=== PATIENT | male | born 1970 | race Caucasian/White ===

== ENCOUNTER 2016-10-25 07:20 | Emergency (ER) | payer OTHER ==
[~2016-10-25] VITALS: Ht 177.8 cm; Wt 122.2 kg
[~2016-10-25 07:20] MED LIST: ATOR80TA PO; INSU100V5 SQ-INSULIN; INSU100V8 SQ; LISI-170 PO; METF500T4 PO
[2016-10-25] MEDS ORDERED: OXYcodone/APAP 5/325MG TABLET PO ONE (08:00)
[2016-10-25] MEDS ORDERED: IBUPROFEN 200 MG TABLET PO ONE (08:00)
[2016-10-25] MEDS ORDERED: OXYcodone/APAP 5/325MG TABLET ONE (08:01)
[2016-10-25] MEDS ORDERED: IBUPROFEN 200 MG TABLET ONE (08:01)
[2016-10-25] MEDS ORDERED: INSULIN REGULAR 100 UNITS/ML, 3ML VIAL ONE (08:24)
[2016-10-25] MEDS ORDERED: SODIUM CHLORIDE FLUSH 10ML SYR IVF ONE (08:30)
[2016-10-25] MEDS ORDERED: INSULIN REGULAR 100 UNITS/ML, 3ML VIAL SQ-INSULIN ONE (08:30)
[2016-10-25] MEDS ORDERED: SODIUM CHLORIDE 0.9% 1,000ML IVBOLUS ONE ×2 (08:30→09:30)
[2016-10-25 08:43] LABS: BLOOD UREA NITROGEN 22 mg/dL (7-18)
[2016-10-25] MEDS ORDERED: LISINOPRIL 20 MG TABLET ONE (09:16)
[2016-10-25] MEDS ORDERED: LISINOPRIL 20 MG TABLET PO ONE (09:30)
[2016-10-25 10:05] VITALS: BP 169/105
== END 2016-10-25 10:16 | disposition home or self-care (01) ==
LOC: ED 08:01
DX: S20.211A Contusion of right front wall of thorax, initial encounter (principal); M54.9 Dorsalgia, unspecified; G89.29 Other chronic pain; E11.65 Type 2 diabetes mellitus with hyperglycemia; I10 Essential (primary) hypertension; Z90.49 Acquired absence of other specified parts of digestive tract; W19.XXXA Unspecified fall, initial encounter; Y93.89 Activity, other specified; Y99.8 Other external cause status; Y92.488 Other paved roadways as the place of occurrence of the external cause
CPT/HCPCS: 36415; 71020; 80048; 82010; 82040; 82800; 82962; 83735; 85025; 96361; 96374; 99285; J7030

== ENCOUNTER 2017-03-13 12:06 | Emergency (ER) | payer OTHER ==
[~2017-03-13] VITALS: Ht 175.3 cm; Wt 116.6 kg
[2017-03-13] MEDS ORDERED: ASPIRIN 81 MG TABLET CHEW ONE (13:00)
[2017-03-13] MEDS ORDERED: ASPIRIN 81 MG TABLET CHEW PO ONE (13:00)
[2017-03-13] MEDS ORDERED: SODIUM CHLORIDE 0.9% 1,000ML IVBOLUS ONE (13:00)
[2017-03-13] MEDS ORDERED: SODIUM CHLORIDE FLUSH 10ML SYR IVF ONE (13:00)
[2017-03-13] MEDS ORDERED: FAMOTIDINE 20 MG/2 ML ONE (13:04)
[2017-03-13] MEDS ORDERED: ONDANSETRON 2MG/ML, 2ML ONE (13:04)
[2017-03-13 13:14] LABS: HEMATOCRIT 48.1 % (39.2-51.8); HEMOGLOBIN 16.6 g/dL (13.7-18.0); WHITE BLOOD COUNT 11.6 x10^3/uL (3.4-10)
[2017-03-13] MEDS ORDERED: ONDANSETRON 2MG/ML, 2ML IVPush ONE (13:30)
[2017-03-13] MEDS ORDERED: FAMOTIDINE 20 MG/2 ML IVPush ONE (13:30)
[2017-03-13 13:32] LABS: ASPARTATE AMINO TRANSFERASE 18 U/L (15-37); BLOOD UREA NITROGEN 15 mg/dL (7-18)
[2017-03-13 14:14] LABS: IS PT STATUS REG ER OR PRE ER? YES
[2017-03-13] MEDS ORDERED: PROMETHAZINE 25 MG/ML, 1ML ONE (14:22)
[2017-03-13] MEDS ORDERED: MORPHINE SULFATE 4 MG/ML, 1ML ONE (14:22)
[2017-03-13] MEDS ORDERED: METOCLOPRAMIDE 5 MG/ML, 2ML IVPush ONE (15:00)
[2017-03-13] MEDS ORDERED: morphine SULFATE 10 MG/ML, 1ML IVPush ONE (15:00)
[2017-03-13] MEDS ORDERED: PROMETHAZINE 25 MG/ML, 1ML IM ONE (15:00)
[2017-03-13] MEDS ORDERED: METOCLOPRAMIDE 5 MG/ML, 2ML ONE (15:03)
[2017-03-13 15:07] LABS: RAPID INFLUENZA A Negative (Negative); RAPID INFLUENZA B Negative (Negative)
[2017-03-13 16:07] VITALS: BP 168/88
== END 2017-03-13 16:12 | disposition home or self-care (01) ==
LOC: ED 13:53
DX: E86.0 Dehydration (principal); R10.84 Generalized abdominal pain; I10 Essential (primary) hypertension; E11.65 Type 2 diabetes mellitus with hyperglycemia; G89.29 Other chronic pain; M54.9 Dorsalgia, unspecified
CPT/HCPCS: 36415; 71020; 80053; 83880; 84484; 85025; 87400; 93005; 96361; 96372; 96374; 96375; 99285; J2270; J2405; J2550; J2765; J7030; S0028

== ENCOUNTER 2018-06-21 16:52 | Inpatient (IN) | payer MEDICAID, OTHER ==
[~2018-06-21] VITALS: Ht 177.8 cm; Wt 116.6 kg
[~2018-06-21 16:52] MED LIST changes: +METF500T17 PO; -METF500T4 PO
[2018-06-21 17:18] LABS: BASOPHILS # (AUTO) 0.06 x10^3/uL (0-0.1); BASOPHILS % (AUTO) 0 % (0-1); EOSINOPHILS # (AUTO) 0.18 x10^3/uL (0-0.4); EOSINOPHILS % (AUTO) 1 % (1-7); LYMPHOCYTES # (AUTO) 3.06 x10^3/uL (1-3.4); LYMPHOCYTES % (AUTO) 23 % (22-44); MD NO; MEAN CORPUSCULAR HEMOGLOBIN 29.5 pg (27.5-34.5); MEAN CORPUSCULAR HGB CONC 34.4 g/dL (33.2-36.2); MEAN CORPUSCULAR VOLUME 85.7 fL (81-97); MONOCYTES # (AUTO) 0.61 x10^3/uL (0.2-0.8); MONOCYTES % (AUTO) 5 % (2-9); NEUTROPHILS # (AUTO) 9.44 x10^3/uL (1.8-6.8); NEUTROPHILS % (AUTO) 71 % (42-75); PLATELET COUNT 248 x10^3/uL (130-400); RED BLOOD COUNT 4.54 x10^6/uL (4.38-5.82); RED CELL DISTRIBUTION WIDTH 13.5 % (9.4-14.8)
[2018-06-21 17:29] LABS: ALBUMIN 3.2 g/dL (3.4-5.0); ANION GAP 10 mmol/L (5-15); CALCIUM 8.5 mg/dL (8.5-10.1); CHLORIDE 110 mmol/L (98-107); CREATININE 1.62 mg/dL (0.7-1.3)
[2018-06-21 17:33] LABS: TROPONIN I < 0.015 ng/mL (0.000-0.045)
--- NOTE | 2018-06-21 18:33 | NUR ---
Assumed care of patient. C/O SOB and increasing pedal edema despite increasing diuretics under the direction of his PCP. BLE 4+ pitting edema. Lungs diminished throughout. 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 Will continue to monitor.
[2018-06-21] MEDS ORDERED: FUROSEMIDE 40 MG/4 ML IV ONE (19:00)
[2018-06-21] MEDS ORDERED: FUROSEMIDE 40 MG/4 ML ONE (19:12)
--- NOTE | 2018-06-21 19:20 | NUR ---
IV started and lasix admin. VSS. No other needs.
[2018-06-21] MEDS ORDERED: INSU100I42 SQ (19:39)
[2018-06-21] MEDS ORDERED: ATOR40TA78 PO (19:39)
[2018-06-21] MEDS ORDERED: SPIR50TA4 PO (19:39)
[2018-06-21] MEDS ORDERED: METF500T17 PO (19:39)
[2018-06-21] MEDS ORDERED: AMIT25TA PO (19:39)
[2018-06-21] MEDS ORDERED: OMEP-110 PO (19:39)
[2018-06-21] MEDS ORDERED: ATEN-104 PO (19:39)
[2018-06-21] MEDS ORDERED: FURO80TA3 PO (19:39)
[2018-06-21] MEDS ORDERED: AMLO-150 PO (19:39)
[2018-06-21] MEDS ORDERED: INSU100I34 SQ-INSULIN (19:39)
[2018-06-21] MEDS ORDERED: LISI40TA PO (19:39)
[2018-06-21] MEDS ORDERED: ACETAMINOPHEN 325 MG TABLET PO PRN (20:30)
[2018-06-21] MEDS ORDERED: hydrALAzine 20 MG/ML, 1ML IVPush PRN (20:30)
[2018-06-21] MEDS ORDERED: POLYETHYLENE GLYCOL 17 GM PACKET PO PRN (20:30)
[2018-06-21] MEDS ORDERED: BISACODYL 10 MG SUPP PR PRN (20:30)
[2018-06-21] MEDS ORDERED: ONDANSETRON ODT 4 MG PO PRN (20:30)
[2018-06-21] MEDS: AMITRIPTYLINE 25 MG TABLET PO SCH (20:34)
--- NOTE | 2018-06-21 20:34 | NUR ---
PM meds admin.
[2018-06-21 20:51] LABS: HEMOGLOBIN A1C 13.5 % (4.2-6.3)
[2018-06-21] MEDS ORDERED: ATORVASTATIN 40 MG TABLET PO SCH (21:00)
[2018-06-21] MEDS: SODIUM CHLORIDE FLUSH 10ML SYR IVF SCH (21:00)
[2018-06-21] MEDS ORDERED: HEPARIN 5,000 UNITS/ML, 1ML ONE (21:16)
[2018-06-21] MEDS: INSULIN GLARGINE 100 UNITS/ML, PEN SQ-INSULIN SCH (21:18)
[2018-06-21] MEDS: INSULIN LISPRO 100 UNITS/ML, PEN SQ-INSULIN SCH (21:18)
[2018-06-21] MEDS: HEPARIN 5,000 UNITS/ML, 1ML SQ SCH (21:19)
--- NOTE | 2018-06-21 21:30 | NUR ---
Insulin admin. Voided 400mL clear yellow urine. Provided with pillow.
--- NOTE | 2018-06-21 21:46 | NUR ---
Report to MELANY Thomas.
--- NOTE | 2018-06-21 21:56 | NUR ---
report from iqra assumed care of pt, pt in nad on all monitors, at bedside
--- NOTE | 2018-06-22 00:12 | NUR ---
report to belle pt to room with tech
[2018-06-22 00:50] VITALS: BP 130/83
[2018-06-22 04:00] VITALS: BP 124/72
[2018-06-22] MEDS: HEPARIN 5,000 UNITS/ML, 1ML SQ SCH ×3 (04:43→21:22)
[2018-06-22 05:22] LABS: BASOPHILS # (AUTO) 0.04 x10^3/uL (0-0.1); BASOPHILS % (AUTO) 0 % (0-1); EOSINOPHILS # (AUTO) 0.14 x10^3/uL (0-0.4); EOSINOPHILS % (AUTO) 1 % (1-7); LYMPHOCYTES % (AUTO) 28 % (22-44); MD NO; MEAN CORPUSCULAR HEMOGLOBIN 29.2 pg (27.5-34.5); MEAN CORPUSCULAR HGB CONC 33.8 g/dL (33.2-36.2); MEAN CORPUSCULAR VOLUME 86.1 fL (81-97); MEAN PLATELET VOLUME 9.2 fL (7.4-10.4); MONOCYTES # (AUTO) 0.73 x10^3/uL (0.2-0.8); MONOCYTES % (AUTO) 7 % (2-9); NEUTROPHILS # (AUTO) 6.36 x10^3/uL (1.8-6.8); NEUTROPHILS % (AUTO) 63 % (42-75); PLATELET COUNT 197 x10^3/uL (130-400); RED BLOOD COUNT 3.93 x10^6/uL (4.38-5.82); RED CELL DISTRIBUTION WIDTH 13.6 % (9.4-14.8)
[2018-06-22 05:27] LABS: ALANINE AMINOTRANSFERASE 17 U/L (12-78); ALBUMIN 2.7 g/dL (3.4-5.0); ANION GAP 8 mmol/L (5-15); CALCIUM 7.9 mg/dL (8.5-10.1); CHLORIDE 111 mmol/L (98-107); CREATININE 1.56 mg/dL (0.7-1.3)
[2018-06-22 05:29] LABS: ALKALINE PHOSPHATASE 58 U/L (45-117); BILIRUBIN,TOTAL 0.2 mg/dL (0.2-1.0); TOTAL PROTEIN 6.1 g/dL (6.4-8.2)
[2018-06-22] MEDS: OMEPRAZOLE 20 MG CAPSULE.DR PO SCH (05:58)
[2018-06-22] MEDS ORDERED: FUROSEMIDE 40 MG/4 ML IV SCH (07:30)
[2018-06-22 08:16] VITALS: BP 131/89
[2018-06-22] MEDS: INSULIN LISPRO 100 UNITS/ML, PEN SQ-INSULIN SCH ×4 (08:47→21:21)
[2018-06-22] MEDS: SODIUM CHLORIDE FLUSH 10ML SYR IVF SCH ×2 (08:48→21:20)
[2018-06-22] MEDS: SENNA/DOCUSATE TABLET PO SCH (08:49)
[2018-06-22] MEDS: INSULIN GLARGINE 100 UNITS/ML, PEN SQ-INSULIN SCH ×2 (08:50→21:22)
[2018-06-22] MEDS ORDERED: ACETAMINOPHEN 325 MG TABLET PO PRN (09:00)
[2018-06-22] MEDS ORDERED: ATENOLOL 50 MG TABLET PO SCH (09:00)
[2018-06-22 10:24] LABS: MICROSCOPIC AUTO
[2018-06-22 10:32] LABS: CULTURE INDICATED? NO
[2018-06-22] MEDS ORDERED: ZOLPIDEM 5MG TABLET PO PRN (11:30)
[2018-06-22] MEDS: LACTOBACILLUS CHEW TABLET PO SCH ×3 (11:58→21:25)
[2018-06-22 13:33] LABS: RAPID INFLUENZA A Negative (Negative); RAPID INFLUENZA B Negative (Negative)
[2018-06-22] MEDS ORDERED: CARVEDILOL 12.5 MG TABLET ONE (15:34)
[2018-06-22 15:55] VITALS: BP 134/82
[2018-06-22] MEDS: ISOSORBIDE DINITRATE 10 MG TABLET PO SCH ×2 (16:13→23:34)
[2018-06-22 17:39] VITALS: BP 144/87
[2018-06-22] MEDS: CARVEDILOL 12.5 MG TABLET PO SCH (17:40)
[2018-06-22 18:44] VITALS: BP 134/79
[2018-06-22] MEDS: AMITRIPTYLINE 25 MG TABLET PO SCH (21:23)
[2018-06-22] MEDS: PROBENECID 500 MG TABLET PO SCH (21:23)
[2018-06-22] MEDS: ATORVASTATIN 80 MG TABLET PO SCH (21:24)
[2018-06-22] MEDS ORDERED: FUROSEMIDE 40 MG/4 ML IV ONE (21:30)
[2018-06-23 02:00] VITALS: BP 142/88
[2018-06-23] MEDS: OMEPRAZOLE 20 MG CAPSULE.DR PO SCH (05:17)
[2018-06-23] MEDS: CARVEDILOL 12.5 MG TABLET PO SCH (05:18)
[2018-06-23] MEDS: ASPIRIN 81 MG TABLET EC PO SCH (05:18)
[2018-06-23] MEDS: HEPARIN 5,000 UNITS/ML, 1ML SQ SCH ×3 (05:21→20:40)
[2018-06-23 05:49] LABS: BASOPHILS # (AUTO) 0.05 x10^3/uL (0-0.1); BASOPHILS % (AUTO) 0 % (0-1); EOSINOPHILS # (AUTO) 0.16 x10^3/uL (0-0.4); EOSINOPHILS % (AUTO) 1 % (1-7); LYMPHOCYTES # (AUTO) 3.08 x10^3/uL (1-3.4); LYMPHOCYTES % (AUTO) 27 % (22-44); MD NO; MEAN CORPUSCULAR HEMOGLOBIN 29.1 pg (27.5-34.5); MEAN CORPUSCULAR HGB CONC 33.9 g/dL (33.2-36.2); MEAN CORPUSCULAR VOLUME 85.9 fL (81-97); MEAN PLATELET VOLUME 9.5 fL (7.4-10.4); MONOCYTES # (AUTO) 0.72 x10^3/uL (0.2-0.8); MONOCYTES % (AUTO) 6 % (2-9); NEUTROPHILS # (AUTO) 7.23 x10^3/uL (1.8-6.8); NEUTROPHILS % (AUTO) 64 % (42-75); PLATELET COUNT 213 x10^3/uL (130-400); RED BLOOD COUNT 4.26 x10^6/uL (4.38-5.82); RED CELL DISTRIBUTION WIDTH 13.7 % (9.4-14.8)
[2018-06-23 05:51] LABS: ANION GAP 8 mmol/L (5-15); CALCIUM 7.7 mg/dL (8.5-10.1); CHLORIDE 108 mmol/L (98-107); CREATININE 1.37 mg/dL (0.7-1.3)
[2018-06-23 05:54] LABS: % IRON SATURATION 36 % (20-55); IRON LEVEL 81 mcg/dL (65-175); TOTAL IRON BINDING CAPACITY 227 mcg/dL (250-450)
[2018-06-23 07:06] VITALS: BP 138/78
[2018-06-23] MEDS: FUROSEMIDE 40 MG TABLET PO SCH (09:28)
[2018-06-23] MEDS: PROBENECID 500 MG TABLET PO SCH ×2 (09:28→20:39)
[2018-06-23] MEDS: ISOSORBIDE DINITRATE 10 MG TABLET PO SCH ×3 (09:29→20:37)
[2018-06-23] MEDS: LACTOBACILLUS CHEW TABLET PO SCH ×3 (09:29→20:36)
[2018-06-23] MEDS: INSULIN LISPRO 100 UNITS/ML, PEN SQ-INSULIN SCH ×4 (09:30→20:36)
[2018-06-23] MEDS: INSULIN GLARGINE 100 UNITS/ML, PEN SQ-INSULIN SCH ×2 (09:31→20:36)
[2018-06-23] MEDS: SENNA/DOCUSATE TABLET PO SCH (09:31)
[2018-06-23] MEDS: SODIUM CHLORIDE FLUSH 10ML SYR IVF SCH ×2 (09:31→20:35)
[2018-06-23 12:30] VITALS: BP 150/87
[2018-06-23 14:05] VITALS: BP 136/88
[2018-06-23] MEDS: CARVEDILOL 6.25 MG TABLET PO SCH (18:09)
[2018-06-23 19:52] VITALS: BP 135/84
[2018-06-23] MEDS: ATORVASTATIN 80 MG TABLET PO SCH (20:38)
[2018-06-23] MEDS: AMITRIPTYLINE 25 MG TABLET PO SCH (20:39)
[2018-06-24 02:10] VITALS: BP 134/56
[2018-06-24] MEDS: HEPARIN 5,000 UNITS/ML, 1ML SQ SCH ×2 (04:29→11:58)
[2018-06-24 06:20] VITALS: BP 127/75
[2018-06-24] MEDS: OMEPRAZOLE 20 MG CAPSULE.DR PO SCH (06:22)
[2018-06-24] MEDS: ASPIRIN 81 MG TABLET EC PO SCH (06:23)
[2018-06-24] MEDS: CARVEDILOL 6.25 MG TABLET PO SCH (06:23)
[2018-06-24 08:20] VITALS: BP 134/84
[2018-06-24] MEDS: FUROSEMIDE 40 MG TABLET PO SCH (08:44)
[2018-06-24] MEDS: LACTOBACILLUS CHEW TABLET PO SCH ×2 (08:44→16:20)
[2018-06-24] MEDS: ISOSORBIDE DINITRATE 10 MG TABLET PO SCH ×2 (08:45→16:20)
[2018-06-24] MEDS: SODIUM CHLORIDE FLUSH 10ML SYR IVF SCH (08:46)
[2018-06-24] MEDS: SENNA/DOCUSATE TABLET PO SCH (08:46)
[2018-06-24] MEDS: INSULIN LISPRO 100 UNITS/ML, PEN SQ-INSULIN SCH ×3 (08:46→16:19)
[2018-06-24] MEDS ORDERED: INSULIN GLARGINE 100 UNITS/ML, PEN SQ-INSULIN SCH (09:00)
[2018-06-24] MEDS ORDERED: INSU100I11 SQ-INSULIN (10:05)
[2018-06-24] MEDS ORDERED: ACID1TAB7 PO (10:05)
[2018-06-24] MEDS ORDERED: FURO40TA6 PO (10:05)
[2018-06-24] MEDS ORDERED: ISOS10TA2 PO (10:05)
[2018-06-24] MEDS ORDERED: INSU100I34 SQ-INSULIN (10:05)
[2018-06-24] MEDS ORDERED: ACET250T2 PO (10:05)
[2018-06-24] MEDS ORDERED: HYDR-3341 PO (10:05)
[2018-06-24] MEDS ORDERED: CARV6.2512 PO (10:05)
[2018-06-24] MEDS ORDERED: ASPI81TA45 PO (10:05)
[2018-06-24 15:50] VITALS: BP 133/94
== END 2018-06-24 17:53 | disposition home or self-care (01) | DRG 683 ==
LOC: ED 18:51 → EDIP 18:56 → ED 19:07 → 5SO 06-22 00:22 → 3NE 06-23 12:43
PROVIDERS: ADMIT Internal Medicine; ATTEND Internal Medicine
DX: N17.9 Acute kidney failure, unspecified (principal); E44.1 Mild protein-calorie malnutrition; R65.10 Systemic inflammatory response syndrome (SIRS) of non-infectious origin without acute organ dysfunction; I50.30 Unspecified diastolic (congestive) heart failure; Z68.36 Body mass index [BMI] 36.0-36.9, adult; D64.9 Anemia, unspecified; D72.829 Elevated white blood cell count, unspecified; E66.01 Morbid (severe) obesity due to excess calories; E11.9 Type 2 diabetes mellitus without complications; E78.5 Hyperlipidemia, unspecified; F12.10 Cannabis abuse, uncomplicated; I11.0 Hypertensive heart disease with heart failure; Z83.49 Family history of other endocrine, nutritional and metabolic diseases; Z79.4 Long term (current) use of insulin; Z86.73 Personal history of transient ischemic attack (TIA), and cerebral infarction without residual deficits
CPT/HCPCS: 36415; 71045; 80048; 80053; 81001; 82040; 82962; 83036; 83540; 83550; 83880; 84484; 85025; 87400; 93005; 93306; 96374; 99285; G0378; J1644; J1940; J1815